=== PATIENT | male | born 1995 | race Caucasian/White ===

== ENCOUNTER 2024-03-23 09:36 | Emergency (ER) | payer OTHER ==
[2024-03-23] MEDS ORDERED: Fluorescein Opthalmic Strip ONE (11:30)
[2024-03-23] MEDS ORDERED: Proparacaine 0.5% Opth 15 ML BOT ONE (11:33)
== END 2024-03-23 12:35 | disposition home or self-care (01) ==
LOC: ERS 09:36
DX: S05.02XA Injury of conjunctiva and corneal abrasion without foreign body, left eye, initial encounter (principal); X58.XXXA Exposure to other specified factors, initial encounter; Y93.89 Activity, other specified
CPT/HCPCS: 99282